=== PATIENT | female | born 2005 | race Two or more races ===

== ENCOUNTER 2023-11-10 03:31 | Emergency (ER) | payer OTHER ==
[2023-11-10 03:37] VITALS: BP 163/91; PULSE 109; RESP 17; TEMP 98.6; BMI 27.4
[2023-11-10] MEDS: METOCLOPRAMIDE HCL 10 MG TABLET (FP) PO ONE (04:02)
[2023-11-10] MEDS: KETOROLAC TROMETHAMINE 60 MG/2 ML VIAL IM ONE (04:09)
== END 2023-11-10 05:32 | disposition home or self-care (01) ==
LOC: FER 03:31
DX: G43.909 Migraine, unspecified, not intractable, without status migrainosus (principal)
CPT/HCPCS: 70450-TC; 99284-25